=== PATIENT | male | born 1950 | race Caucasian/White ===

== ENCOUNTER 2021-04-27 10:48 | Emergency (ER) | payer OTHER, SELFPAY ==
[2021-04-27 11:05] VITALS: BP 131/64; PULSE 66; RESP 12; TEMP 36.3; O2SAT 100
--- NOTE | 2021-04-27 11:31 | ED.URI ---
HPI - URI/Sore Throat General Chief Complaint: Upper Respiratory Infection Stated Complaint: sorethroat,spots in throat area Time Seen by Provider: 04/27/21 11:18 Source: patient and RN notes reviewed Mode of arrival: ambulatory Limitations: no limitations History of Present Illness HPI Narrative: Patient presents today complaining of sore throat and postnasal drip since yesterday. Denies fever, cough, congestion, rhinorrhea, or any additional symptoms. He currently rates his pain 12/13 and has been using salt water gargles with mild short-term relief. Denies sick contacts. He has been vaccinated against COVID-19. MD elicited complaint: sore throat Related Data Home Medications Medication Instructions Recorded Confirmed amiodarone 100 mg PO DAILY 04/27/21 04/27/21 celecoxib 200 mg PO DAILY 04/27/21 04/27/21 digoxin 250 mcg PO DAILY 04/27/21 04/27/21 irbesartan-hydrochlorothiazide 1 tablet PO DAILY 04/27/21 04/27/21 metformin 500 mg PO BID 04/27/21 04/27/21 metoprolol succinate 50 mg PO DAILY 04/27/21 04/27/21 Allergies Allergy/AdvReac Type Severity Reaction Status Date / Time naproxen [From Aleve] AdvReac Severe Anaphylaxis Verified 04/27/21 11:19 Review of Systems Review of Systems: CONSTITUTIONAL: Denies body aches, fever, chills, or sweats. EYES: Denies visual changes, redness, or discharge. ENT: Denies rhinorrhea, congestion, otalgia.+ Sore throat, postnasal drainage CARDIOVASCULAR: Denies chest pain, palpitations, or edema. RESPIRATORY: Denies cough or dyspnea. GASTROINTESTINAL: Denies abdominal pain, nausea, vomiting, or diarrhea. GENITOURINARY: Denies dysuria or hematuria. SKIN: Denies rash, itching, or wounds. MUSCULOSKELETAL: Denies back pain, joint pain, or myalgia. NEUROLOGIC: Denies headache, numbness, tingling, or weakness. PSYCH: Denies depression or anxiety. [facility] Past Medical History Medical History (Updated 04/27/21 @ 11:35 by Angélica Vera, [employer], BC) A-fib Comments At time of signature, I have reviewed and agree with nursing past medical, surgical, social and family history unless otherwise noted. Please see nursing chart for further information. There is no relevant family history pertinent to the presenting complaint Exam Narrative: GENERAL: Well-appearing, well-nourished, and in no acute distress. HEAD: Normocephalic, atraumatic. EYES: EOMI. No redness or drainage. Conjunctivae normal. ENT: Mucous membranes pink and moist. Nares clear. No rhinorrhea. TMs normal bilaterally. Throat normal with mild postnasal drainage. Uvula midline. NECK: Normal AROM. Supple. No lymphadenopathy. CHEST: No respiratory distress. Clear to auscultation. HEART: Regular rate and rhythm. No murmur appreciated. Normal peripheral pulses. EXTREMITIES: Normal range of motion. No edema. SKIN: Warm, dry, no rash. Capillary refill normal. Normal skin turgor. NEURO: No focal deficits. Alert and oriented x3. Gait steady. PSYCH: Normal affect. No signs of depression or anxiety. Course Vital Signs Vital signs: Vital Signs Temperature 97.4 F L 04/27/21 11:05 Pulse Rate 66 04/27/21 11:05 Respiratory Rate 12 04/27/21 11:05 Blood Pressure 131/64 04/27/21 11:05 Pulse Oximetry 100 04/27/21 11:05 Temperature 97.4 F L 04/27/21 11:05 Pulse Rate 66 04/27/21 11:05 Respiratory Rate 12 04/27/21 11:05 Blood Pressure 131/64 04/27/21 11:05 Pulse Oximetry 100 04/27/21 11:05 Reviewed. Pt has been instructed to follow up with his PCP regarding his elevated blood pressure today. MDM - URI/Sore Throat Differential Diagnosis Differential diagnosis: Likely upper respiratory infection, otitis media, sinusitis, viral infection, pharyngitis and other (Strep throat) Lab Data Attestation: I reviewed the patient's lab results. Labs: Strep Screen Presumptive Negative *(Reference Range: Negative)* Strep Screen Presumpti
== END 2021-04-27 11:46 | disposition home or self-care (01) ==
PROVIDERS: Emergency Provider Nurse Practitioner
DX: J02.9 Acute pharyngitis, unspecified (principal); I48.91 Unspecified atrial fibrillation
CPT/HCPCS: 87081; 87880; 99203; G0463